=== PATIENT | female | born 1980 | race Caucasian/White ===

== ENCOUNTER → 2016-12-16 | Emergency (ER) | payer MEDICAID ==
[~2016-12-16] VITALS: Ht 162.6 cm; Wt 90.7 kg
[~2016-12-16] MED LIST: ACETAMINOPHEN-1 EAC1 ORAL; ALBUTEROL SULF8.5 GM INH; BENADRYL25 MG ORAL; DAILY VITAMIN1 EAC4 ORAL; DEPAKOTE250 MG PO; DOCUSATE SODIU100 MG ORAL; DONEPEZIL HCL10 M2 ORAL; FAMOTIDINE20 MG ORAL; HYDROCHLOROTHIA25 MG ORAL; KEFLEX500 MG ORAL; KENALOG IN ORABA1 EA APPLIC; MOBIC15 MG ORAL; Morphine Sulfate 4mg/ml Inj IVP ONE; NAMENDA10 MG ORAL; NORCO 10/3251 EA ORAL; NORCO 5-325 TA1 EACH ORAL; NORCO 5-325 TA1 EACH PO; ONDANSETRON ODT4 MG ORAL; PERCOCET 5-3251 EACH PO; PHENERGAN25 M1 ORAL; PRILOSEC10 M1 ORAL; RANITIDINE HCL150 MG PO; TRAMADOL HCL50 MG ORAL; UNOBMED; ZOFRAN ODT4 MG ORAL; ZOFRAN4 MG ORAL
[2016-12-16 12:54] VITALS: BP 118/80
[2016-12-16 13:51] LABS: APPEARANCE,URINE CLEAR; KETONES,URINE NEGATIVE (NEGATIVE); LEUKOCYTE ESTERASE ,URINE NEGATIVE (NEGATIVE); NITRITE,URINE NEGATIVE (NEGATIVE); PH,URINE 7 (4.5-8.0); PROTEIN,URINE NEGATIVE (NEGATIVE); UROBILINOGEN,URINE NORMAL MG/DL (0.0-1.0)
[2016-12-16 13:52] LABS: BASOPHILS % (AUTO) 0.7 % (0.0-2.0); EOSINOPHILS % (AUTO) 1.9 % (0.0-3.0); LYMPHOCYTES % (AUTO) 14.8 % (20.0-45.0); MEAN CORPUSCULAR HEMOGLOBIN 25.5 PG (27.0-31.0); MEAN CORPUSCULAR HGB CONC 30.9 G/DL (32.0-36.0); MEAN CORPUSCULAR VOLUME 82 FL (80-99); MEAN PLATELET VOLUME 7.8 FL (6.5-10.1); MONOCYTES % (AUTO) 6.8 % (1.0-10.0); NEUTROPHILS % (AUTO) 75.8 % (45.0-75.0); PLATELET COUNT 288 K/UL (150-450); RED BLOOD COUNT 4.25 M/UL (4.20-5.40); RED CELL DISTRIBUTION WIDTH 14.7 % (11.6-14.8); WHITE BLOOD COUNT 5.6 K/UL (4.8-10.8)
[2016-12-16 14:04] LABS: ALANINE AMINOTRANSFERASE 10 U/L (3-33); ALBUMIN/GLOBULIN RATIO 1.1 (1.0-2.7); ANION GAP 14 (5-15); ASPARTATE AMINO TRANSFERASE 16 U/L (5-40); CALCIUM 9.1 mg/dL (8.6-10.2); CARBON DIOXIDE 24 mEQ/L (20-30); CHLORIDE 100 mEQ/L (98-107); CREATININE 0.8 mg/dL (0.5-0.9); GLOMERULAR FILTRATION RATE > 60 mL/min (>60); HEMOLYSIS 4; LIPASE 22 U/L (< 60); POTASSIUM 3.8 mEQ/L (3.4-4.9); SODIUM 138 mEQ/L (135-145)
[2016-12-16 14:59] VITALS: BP 123/76
--- NOTE | 2016-12-16 15:20 | Diagnostic Imaging Report ---
Indications: Abdominal pain for one day, history of cervical carcinoma and hysterectomy Technique: Continuous helical CT imaging of the abdomen and pelvis was performed with automatic exposure control following administration intravenous nonionic iodine contrast, on a Siemens sensation [address] scanner. Axial, coronal, and sagittal images were reconstructed at 5 mm slice thickness. No oral contrast was administered per requesting physician's order, despite no contraindications listed in either submitted clinical data or tech note. CTDI volume(s): 18 mGy Total DLP: 935 mGy-cm Findings: Comparison: 09/13/2016, 05/30/2016, 04/15/2016, 02/02/2016, 07/19/2013 Lack of currently administered oral contrast limits evaluation. Residual contrast from recent prior outside examination is present throughout the colon to the rectum. Entire tract nondilated. Small hiatal hernia, gastric bypass changes, prior cholecystectomy, mild prominence of bile ducts without obvious obstructive etiology, linea alba a diastases in conjunction with intra-abdominal wall incisional scar, absence of uterus and ovaries unchanged. Remainder visualized pelvic anatomy demonstrates no other obvious acute abnormality. Lung bases and adjacent pleural surfaces clear. No focal skeletal abnormality identified. Impression: No evidence of acute abdominopelvic disease, with limitation as described. Subtle but potentially significant abnormalities may be missed. Repeat CT scan with full oral and IV contrast preparation recommended for more complete evaluation, as clinically indicated Stable chronic changes as described
--- NOTE | 2016-12-16 15:51 | Emergency Room Report ---
History of Present Illness General Chief Complaint: Abdominal Pain Source: Medical Record Present Illness Allergies: Coded Allergies: ASPIRIN (Verified Allergy, Severe, bleeding, 07/19/13) SUMATRIPTAN (Verified Allergy, Severe, rash, 07/19/13) SUMATRIPTAN SUCCINATE (Verified Allergy, Severe, rash, 07/19/13) METOCLOPRAMIDE (Verified Allergy, Unknown, 12/16/16) PIPERACILLIN (Verified Allergy, Unknown, 04/15/16) TAZOBACTAM (Verified Allergy, Unknown, 04/15/16) VANCOMYCIN (Verified Allergy, Unknown, 12/16/16) Uncoded Allergies: REGLAN (Allergy, Unknown, 09/12/16) VANCOMYCIN (Allergy, Unknown, 09/12/16) Patient History Last Menstrual Period: Hystectomy Now: No : 7 Para: 7 Nursing Documentation-PMH Past Medical History: No History, Except For Hx Asthma: Yes Hx Cancer: Yes - cervical CA Hx Gastrointestinal Problems: Yes - INTUSIVCEPTIVE Physical Exam Vital Signs Date Time Temp Pulse Resp B/P Pulse Ox O2 Delivery O2 Flow Rate FiO2 12/16/16 12:49 98.8 64 18 118/80 99 Room Air Procedures Laceration/Wound Repair Laceration/Wound Repair : Consent: Verbal Wound Location: abdomen Wound's Depth, Shape: superficial Wound Explored: contaminated Betadine Prep?: No Wound Debrided: minimal Wound Repaired With: Steri-strips Sling Applied?: No Patient Tolerated: Well Complications: None Progress Area with endorses pus drainage from patient/, ?dirty wound Was not sutured close Medical Decision Making Diagnostic Impression: Primary Impression: Abdominal pain Qualified Codes: R10.84 - Generalized abdominal pain Additional Impressions: Opiate dependence Qualified Codes: F11.20 - Opioid dependence, uncomplicated narcotic seeking behavior ER Course Received patient in signout from Dr Paredes to followup CTAP No acute abnormality to explain patient's pain Patient endorsing discharge from wound; we shall elect to close with steri strips open d/t ?dirty wound PO keflex sent to patient's pharmacy Patient and partner made specific request for admission for "pain meds" and also requesting Rx for opioids Patient's partner became aggressive, threatening to me at MD desk Recommended f/up with Dr Diaz who I texted to help secure appointment for patient No other acute issue in ED DC home Last Vital Signs Date Time Temp Pulse Resp B/P Pulse Ox O2 Delivery O2 Flow Rate FiO2 12/16/16 14:59 68 18 123/76 99 Room Air 12/16/16 12:49 98.8 Status: improved Disposition: HOME, SELF-CARE Condition: Improved Scripts Cephalexin* (KEFLEX*) 500 Mg Capsule 500 MG ORAL Q6H for 7 Days, #28 CAP 0 Refills Prov: BRIAN THACKER M.D. 12/16/16 Referrals: [facility],REFERRING (PCP) Additional Instructions: - Take ALL antibiotics as prescribed - Keep steri strips clean/dry on wound - Please follow up with Dr Diaz for followup appointment in his office in 2-3 days BRIAN THACKER M.D. Dec 16, 2016 15:51
--- NOTE | 2016-12-17 14:06 | Emergency Room Report ---
History of Present Illness General Chief Complaint: Abdominal Pain Source: Patient, Medical Record Present Illness HPI 36-year-old female presents to ED complaining of abdominal pain. States pain started one hour ago while at rest. Pain is sharp. 10 out of 10. Localized lower abdomen. Nonradiating. No aggravating or relieving factors. Patient states she's had multiple surgeries to her abdomen in the past including hernia repair with mesh. Denies he nausea or vomiting. Denies fevers or chills. Denies any other associated symptom Allergies: Coded Allergies: ASPIRIN (Verified Allergy, Severe, bleeding, 07/19/13) SUMATRIPTAN (Verified Allergy, Severe, rash, 07/19/13) SUMATRIPTAN SUCCINATE (Verified Allergy, Severe, rash, 07/19/13) METOCLOPRAMIDE (Verified Allergy, Unknown, 12/16/16) PIPERACILLIN (Verified Allergy, Unknown, 04/15/16) TAZOBACTAM (Verified Allergy, Unknown, 04/15/16) VANCOMYCIN (Verified Allergy, Unknown, 12/16/16) Uncoded Allergies: REGLAN (Allergy, Unknown, 09/12/16) VANCOMYCIN (Allergy, Unknown, 09/12/16) Patient History Past Medical History: asthma, other - cervical CA Past Surgical History: other - hernia Pertinent Family History: none Social History: Denies: alcohol use, drug use, smoking Last Menstrual Period: Hystectomy Now: No : 7 Para: 7 Immunizations: UTD Reviewed Nursing Documentation: PMH: Agreed, PSxH: Agreed Nursing Documentation-PMH Past Medical History: No History, Except For Hx Asthma: Yes Hx Cancer: Yes - cervical CA Hx Gastrointestinal Problems: Yes - INTUSIVCEPTIVE Review of Systems All Other Systems: negative except mentioned in HPI Physical Exam Vital Signs Date Time Temp Pulse Resp B/P Pulse Ox O2 Delivery O2 Flow Rate FiO2 12/16/16 12:49 98.8 64 18 118/80 99 Room Air Sp02 EP Interpretation: reviewed, normal General Appearance: no apparent distress, alert, GCS 15, non-toxic, obese Head: normocephalic, atraumatic Eyes: bilateral eye PERRL, bilateral eye normal inspection ENT: hearing grossly normal, normal pharynx, no angioedema, normal voice Neck: full range of motion, supple/symm/no masses Respiratory: chest non-tender, lungs clear, normal breath sounds, speaking full sentences Cardiovascular #1: regular rate, rhythm, no edema Cardiovascular #2: 2+ carotid (R), 2+ carotid (L), 2+ radial (R), 2+ radial (L) , 2+ dorsalis pedis (R), 2+ dorsalis pedis (L) Gastrointestinal: normal bowel sounds, non tender, soft, non-distended, no guarding, no rebound, other - surgical scars healed in lower abdomen. small 1cm opening within surgical scar. no drainage or erythema Rectal: deferred Genitourinary: normal inspection, no CVA tenderness Musculoskeletal: back normal, gait/station normal, normal range of motion, non- tender, calf tenderness Neurologic: alert, oriented x3, responsive, motor strength/tone normal, sensory intact, speech normal Psychiatric: judgement/insight normal, memory normal, mood/affect normal, no suicidal/homicidal ideation Reflexes: 3+ bicep (R), 3+ bicep (L), 3+ tricep (R), 3+ tricep (L), 3+ knee (R) , 3+ knee (L) Skin: normal color, no rash, warm/dry, well hydrated Lymphatic: no adenopathy Medical Decision Making Diagnostic Impression: Primary Impression: Abdominal pain Qualified Codes: R10.84 - Generalized abdominal pain Additional Impressions: Opiate dependence Qualified Codes: F11.20 - Opioid dependence, uncomplicated narcotic seeking behavior ER Course Hospital Course 36-year-old f presents to ED with abdominal pain. History of multiple surgeries. Noted to have small drainage from surgical site Differential diagnosis includes-surgical site infection, abscess, problem with hernia mesh, SBO Clinical course Patient placed on stretcher. After initial history and physical I ordered labs , IV fluids, pain medications and CT scan Labs - no leukocytosis, electrolytes ok, LFTs normal, UA unremarkable CT scan pending Case endorsed to Dr. Thacker pending CT results I did convey my concern to oncoming physician that patients has been coming to the desk repeatedly requesting additional pain medications for the patient. I am concerned about opioid dependence. On observation the patient appears to be in no distress. Abdominal exam show no rigidity or guarding. Labs Test 12/16/16 13:15 12/16/16 13:40 Urine Color Pale yellow Urine Appearance Clear Urine pH 7 (4.5-8.0) Urine Specific [place] 1.005 (1.005-1.035) Urine Protein Negative (NEGATIVE) Urine Glucose (UA) Negative (NEGATIVE) Urine Ketones Negative (NEGATIVE) Urine Occult Blood Negative (NEGATIVE) Urine Nitrite Negative (NEGATIVE) Urine Bilirubin Negative (NEGATIVE) Urine Urobilinogen Normal MG/DL (0.0-1.0) Urine Leukocyte Esterase Negative (NEGATIVE) Urine HCG, Qualitative Negative White Blood Count 5.6 K/UL (4.8-10.8) Red Blood Count 4.25 M/UL (4.20-5.40) Hemoglobin 10.8 G/DL (12.0-16.0) Hematocrit 35.0 % (37.0-47.0) Mean Corpuscular Volume 82 FL (80-99) Mean Corpuscular Hemoglobin 25.5 PG (27.0-31.0) Mean Corpuscular Hemoglobin Concent 30.9 G/DL (32.0-36.0) Red Cell Distribution Width 14.7 % (11.6-14.8) Platelet Count 288 K/UL (150-450) Mean Platelet Volume 7.8 FL (6.5-10.1) Neutrophils (%) (Auto) 75.8 % (45.0-75.0) Lymphocytes (%) (Auto) 14.8 % (20.0-45.0) Monocytes (%) (Auto) 6.8 % (1.0-10.0) Eosinophils (%) (Auto) 1.9 % (0.0-3.0) Basophils (%) (Auto) 0.7 % (0.0-2.0) Sodium Level 138 mEQ/L (135-145) Potassium Level 3.8 mEQ/L (3.4-4.9) Chloride Level 100 mEQ/L (98-107) Carbon Dioxide Level 24 mEQ/L (20-30) Anion Gap 14 (5-15) Blood Urea Nitrogen 8 mg/dL (7-23) Creatinine 0.8 mg/dL (0.5-0.9) Estimat Glomerular Filtration Rate > 60 mL/min (>60) Glucose Level 97 mg/dL (74-106) Calcium Level 9.1 mg/dL (8.6-10.2) Total Bilirubin 0.3 mg/dL (0.0-1.2) Aspartate Amino Transf (AST/SGOT) 16 U/L (5-40) Alanine Aminotransferase (ALT/SGPT) 10 U/L (3-33) Alkaline Phosphatase 120 U/L (35-104) Total Protein 8.0 g/dL (6.6-8.7) Albumin 4.2 g/dL (3.5-5.2) Globulin 3.8 g/dL Albumin/Globulin Ratio 1.1 (1.0-2.7) Lipase 22 U/L (< 60) Last Vital Signs Date Time Temp Pulse Resp B/P Pulse Ox O2 Delivery O2 Flow Rate FiO2 12/16/16 15:58 98.7 12/16/16 14:59 68 18 123/76 99 Room Air Signed Out To: Dr Thacker Scripts Cephalexin* (KEFLEX*) 500 Mg Capsule 500 MG ORAL Q6H for 7 Days, #28 CAP 0 Refills Prov: BRIAN THACKER M.D. 12/16/16 Referrals: [facility],REFERRING (PCP) Additional Instructions: - Take ALL antibiotics as prescribed - Keep steri strips clean/dry on wound - Please follow up with Dr Diaz for followup appointment in his office in 2-3 days MINI OLSEN M.D. Dec 17, 2016 14:06
== END | disposition home or self-care (01) ==
LOC: EDUNIT# 12:48 → EDBD 12:54 → EMR 13:30
DX: R10.9 Unspecified abdominal pain (principal); F11.20 Opioid dependence, uncomplicated; J45.909 Unspecified asthma, uncomplicated; Z85.41 Personal history of malignant neoplasm of cervix uteri; Z90.710 Acquired absence of both cervix and uterus
CPT/HCPCS: 36415; 74177; 80053; 81003; 81025; 83690; 85025; 96374; 96375; 99284; J2270; Q9967

== ENCOUNTER 2018-02-15 19:23 | Emergency (ER) | payer MEDICAID ==
[~2018-02-15] VITALS: Ht 162.6 cm; Wt 95.3 kg
[~2018-02-15 19:23] MED LIST changes: -Morphine Sulfate 4mg/ml Inj IVP ONE; +NORCO 10-325 T1 EACH ORAL
[2018-02-15 19:30] VITALS: BP 180/100
[2018-02-15] MEDS ORDERED: levETIRAcetam 500mg/NS100ml 100 ML IVPB ONE (19:45)
[2018-02-15] MEDS ORDERED: Dexamethasone 4mg/ml vial IVP ONE (20:00)
[2018-02-15 20:45] LABS: APPEARANCE,URINE CLEAR; BILIRUBIN, URINE NEGATIVE (NEGATIVE); COLOR,URINE PALE YELLOW; GLUCOSE, URINE (UA) NEGATIVE (NEGATIVE); KETONES,URINE NEGATIVE (NEGATIVE); LEUKOCYTE ESTERASE ,URINE NEGATIVE (NEGATIVE); NITRITE,URINE NEGATIVE (NEGATIVE); PH,URINE 7 (4.5-8.0); PROTEIN,URINE 1+ (NEGATIVE); UROBILINOGEN,URINE NORMAL MG/DL (0.0-1.0)
[2018-02-15 20:54] LABS: ANION GAP 6 mmol/L (5-15); BLOOD UREA NITROGEN 7 mg/dL (7-18); CALCIUM 8.4 MG/DL (8.5-10.1); CARBON DIOXIDE 26 MMOL/L (21-32); CHLORIDE 106 MMOL/L (98-107); CREATININE 0.8 MG/DL (0.55-1.30); POTASSIUM 4.7 MMOL/L (3.5-5.1); SODIUM 138 MMOL/L (136-145)
[2018-02-15 20:59] LABS: ALANINE AMINOTRANSFERASE 15 U/L (12-78); ALBUMIN 3.3 G/DL (3.4-5.0); ALBUMIN/GLOBULIN RATIO 0.8 (1.0-2.7); ALKALINE PHOSPHATASE 116 U/L (46-116); ASPARTATE AMINO TRANSFERASE 31 U/L (15-37); BILIRUBIN,TOTAL 0.3 MG/DL (0.2-1.0)
[2018-02-15 21:30] VITALS: BP 122/72
[2018-02-15 21:43] LABS: HEMATOCRIT 27.2 % (37.0-47.0); HEMOGLOBIN 8.1 G/DL (12.0-16.0); MEAN CORPUSCULAR VOLUME 70 FL (80-99); PLATELET COUNT 328 K/UL (150-450); RED BLOOD COUNT 3.87 M/UL (4.20-5.40); RED CELL DISTRIBUTION WIDTH 14.9 % (11.6-14.8); WHITE BLOOD COUNT 8.5 K/UL (4.8-10.8)
[2018-02-15 21:44] LABS: BASOPHILS % (AUTO) 0.7 % (0.0-2.0); EOSINOPHILS % (AUTO) 2.6 % (0.0-3.0); LYMPHOCYTES % (AUTO) 5.9 % (20.0-45.0); MONOCYTES % (AUTO) 4.5 % (1.0-10.0); NEUTROPHILS % (AUTO) 86.3 % (45.0-75.0)
--- NOTE | 2018-02-15 22:15 | Emergency Room Report ---
History of Present Illness General Chief Complaint: Seizure Source: Patient, EMS Present Illness HPI Patient 37-year-old female presented after possible seizure. The patient stated that she had not had previous seizures in the past. She reported having in her head. She denies any fever. She had reported prior history of cervical cancer. She does not take seizure medications.The seizure was witnessed generalized. Allergies: Coded Allergies: ASPIRIN (Verified Allergy, Severe, bleeding, 07/19/13) SUMATRIPTAN (Verified Allergy, Severe, rash, 07/19/13) SUMATRIPTAN SUCCINATE (Verified Allergy, Severe, rash, 07/19/13) METOCLOPRAMIDE (Verified Allergy, Unknown, 12/16/16) PIPERACILLIN (Verified Allergy, Unknown, 04/15/16) TAZOBACTAM (Verified Allergy, Unknown, 04/15/16) VANCOMYCIN (Verified Allergy, Unknown, 12/16/16) Uncoded Allergies: REGLAN (Allergy, Unknown, 09/12/16) VANCOMYCIN (Allergy, Unknown, 09/12/16) Patient History Past Medical History: see triage record Last Menstrual Period: n/a Now: No - hysterectomy Reviewed Nursing Documentation: PMH: Agreed; PSxH: Agreed Nursing Documentation-PMH Hx Hypertension: Yes Hx Asthma: Yes Hx Cancer: Yes - cervical Hx Gastrointestinal Problems: Yes - INTUSIVCEPTIVE Review of Systems All Other Systems: negative except mentioned in HPI Physical Exam Vital Signs Date Time Temp Pulse Resp B/P (MAP) Pulse Ox O2 Delivery O2 Flow Rate FiO2 02/15/18 19:17 98.5 120 16 180/100 98 Room Air 98.4 Sp02 EP Interpretation: reviewed, normal General Appearance: normal inspection, well appearing, no apparent distress, alert, GCS 15, non-toxic Head: atraumatic ENT: normal ENT inspection, hearing grossly normal, normal voice Neck: normal inspection, full range of motion, supple, no bony tend Respiratory: normal inspection, lungs clear, normal breath sounds, no respiratory distress, no retraction, no wheezing Cardiovascular #1: regular rate, rhythm, no edema Gastrointestinal: normal inspection, normal bowel sounds, non tender, soft, no guarding, no hernia Genitourinary: no CVA tenderness Musculoskeletal: normal inspection, back normal, normal range of motion Neurologic: normal inspection, alert, oriented x3, responsive, barrel waterer III-XII nml as tested, motor strength/tone normal, speech normal Psychiatric: normal inspection, judgement/insight normal, mood/affect normal Skin: normal inspection, normal color, no rash Medical Decision Making Diagnostic Impression: Primary Impression: New onset seizure Additional Impression: Head contusion ER Course Patient presented for seizure. Differential diagnosis included cysticercosis, electrolyte abnormality, mass lesion, or cranial hemorrhage. Because of complexity of patient's case laboratory testing and imaging studies were ordered. I laboratory testing was notable for anemia. CT head read by radiology showed no evidence of acute hemorrhage or CVA. Patient was given IV Keppra. Urine drug screen was positive for opiates.The patient was discussed with Physician from [facility] for Transfer. Patient insurance company was unable to arrange a timely transfer.Patient's Currently Stable for Transfer. Dr. Hagan was contacted for inpatient management due to complexity of medical condition. Labs Test 02/15/18 20:10 02/15/18 21:35 Urine Color Pale yellow Urine Appearance Clear Urine pH 7 (4.5-8.0) Urine Specific [place] 1.010 (1.005-1.035) Urine Protein 1+ (NEGATIVE) Urine Glucose (UA) Negative (NEGATIVE) Urine Ketones Negative (NEGATIVE) Urine Occult Blood Negative (NEGATIVE) Urine Nitrite Negative (NEGATIVE) Urine Bilirubin Negative (NEGATIVE) Urine Urobilinogen Normal MG/DL (0.0-1.0) Urine Leukocyte Esterase Negative (NEGATIVE) Urine RBC 0-2 /HPF (0 - 2) Urine WBC 0-2 /HPF (0 - 2) Urine Squamous Epithelial Cells Few /LPF (NONE/OCC) Urine Bacteria Few /HPF (NONE) Urine HCG, Qualitative Negative (NEGATIVE) Sodium Level 138 MMOL/L (136-145) Potassium Level 4.7 MMOL/L (3.5-5.1) Chloride Level 106 MMOL/L (98-107) Carbon Dioxide Level 26 MMOL/L (21-32) Anion Gap 6 mmol/L (5-15) Blood Urea Nitrogen 7 mg/dL (7-18) Creatinine 0.8 MG/DL (0.55-1.30) Estimat Glomerular Filtration Rate > 60 mL/min (>60) Glucose Level 90 MG/DL (74-106) Calcium Level 8.4 MG/DL (8.5-10.1) Total Bilirubin 0.3 MG/DL (0.2-1.0) Aspartate Amino Transf (AST/SGOT) 31 U/L (15-37) Alanine Aminotransferase (ALT/SGPT) 15 U/L (12-78) Alkaline Phosphatase 116 U/L (46-116) Total Protein 7.4 G/DL (6.4-8.2) Albumin 3.3 G/DL (3.4-5.0) Globulin 4.1 g/dL Albumin/Globulin Ratio 0.8 (1.0-2.7) Urine Opiates Screen Positive (NEGATIVE) Urine Barbiturates Screen Negative (NEGATIVE) Phencyclidine (PCP) Screen Negative (NEGATIVE) Urine Amphetamines Screen Negative (NEGATIVE) Urine Benzodiazepines Screen Negative (NEGATIVE) Urine Cocaine Screen Negative (NEGATIVE) Urine Marijuana (THC) Screen Negative (NEGATIVE) White Blood Count 8.5 K/UL (4.8-10.8) Red Blood Count 3.87 M/UL (4.20-5.40) Hemoglobin 8.1 G/DL (12.0-16.0) Hematocrit 27.2 % (37.0-47.0) Mean Corpuscular Volume 70 FL (80-99) Mean Corpuscular Hemoglobin 20.9 PG (27.0-31.0) Mean Corpuscular Hemoglobin Concent 29.7 G/DL (32.0-36.0) Red Cell Distribution Width 14.9 % (11.6-14.8) Platelet Count 328 K/UL (150-450) Mean Platelet Volume 7.1 FL (6.5-10.1) Neutrophils (%) (Auto) 86.3 % (45.0-75.0) Lymphocytes (%) (Auto) 5.9 % (20.0-45.0) Monocytes (%) (Auto) 4.5 % (1.0-10.0) Eosinophils (%) (Auto) 2.6 % (0.0-3.0) Basophils (%) (Auto) 0.7 % (0.0-2.0) EKG Diagnostic Results Rate: normal Rhythm: NSR ST Segments: no acute changes Rhythm Strip Diag. Results EP Interpretation: yes Rhythm: NSR, no PVC's, no ectopy Last Vital Signs Date Time Temp Pulse Resp B/P (MAP) Pulse Ox O2 Delivery O2 Flow Rate FiO2 02/15/18 21:15 98.5 02/15/18 19:17 120 16 180/100 98 Room Air Status: unchanged Disposition: ADMITTED INPATIENT Condition: Serious Buck Leiva Feb 15, 2018 22:15
[2018-02-15 23:30] VITALS: BP 117/65
[2018-02-15] MEDS ORDERED: Morphine Sulfate 2mg/ml Inj IVP PRN (23:30)
[2018-02-15] MEDS ORDERED: Zolpidem 5mg tab ORAL PRN (23:30)
[2018-02-15] MEDS ORDERED: HYDROcodone/Acetamin 10/325 tab ORAL PRN (23:30)
[2018-02-15] MEDS ORDERED: Albuterol 90mcg Inhaler 8gm INH SCH (23:30)
[2018-02-15] MEDS ORDERED: Mylanta II UD 30ml ORAL PRN (23:30)
[2018-02-15] MEDS ORDERED: Miralax 17gm pkt ORAL PRN (23:30)
[2018-02-15] MEDS ORDERED: LORazepam Inj 2mg/ml 1ml IV PRN (23:30)
[2018-02-16 01:10] VITALS: BP 133/80
[2018-02-16 01:20] VITALS: BP 133/80
[2018-02-16] MEDS ORDERED: Heparin 5000 units/ml inj SUBQ SCH (09:00)
--- NOTE | 2018-02-16 10:44 | Diagnostic Imaging Report ---
Indication: Altered mental status Technique: Continuous helical CT scanning of the head was performed without intravenous contrast material. Axial and coronal 5 mm sections were generated. Radiation dose was minimized using automated exposure control Dose: Total Dose Length Product - DLP 1333.[address] Dose Index - CTDIvol(s) 70.38 mGy. Comparison: 08/25/2013 Findings: The ventricular system is normal in size and configuration. There is no shift of midline structures. No abnormal extra-axial fluid collections are noted. There is no evidence of intracerebral bleeding. No other abnormal high or low density areas are noted within the brain. There is midline frontal scalp mild soft tissue swelling. Normal rangel-white differentiation. Underpneumatized mastoids bilaterally. Visualized orbits and sinuses are unremarkable. Probable empty sella noted Impression: Evidence of frontal scalp soft tissue injury Negative for acute intracranial bleed or mass effect Empty sella incidentally noted This agrees with the preliminary interpretation provided overnight by [facility] teleradiology service. The CT scanner at [facility] is accredited by the [place] [employer] and the scans are performed using protocols designed to limit radiation exposure to as low as reasonably achievable to attain images of sufficient resolution adequate for diagnostic evaluation.
== END 2018-02-16 01:20 | disposition other institution (70) ==
LOC: EDBD 19:23 → EMR 19:35 → EDBEDREQ 22:27 → EMR 02-16 01:20
DX: R56.9 Unspecified convulsions (principal); S00.93XA Contusion of unspecified part of head, initial encounter; W19.XXXA Unspecified fall, initial encounter; Y92.9 Unspecified place or not applicable; I10 Essential (primary) hypertension; J45.909 Unspecified asthma, uncomplicated; Z85.41 Personal history of malignant neoplasm of cervix uteri; Z88.6 Allergy status to analgesic agent; Z88.1 Allergy status to other antibiotic agents; Z88.8 Allergy status to other drugs, medicaments and biological substances
CPT/HCPCS: 36415; 70450; 80053; 80307; 81001; 81025; 85025; 99285; J0780; J1100; J1953

== ENCOUNTER 2018-07-09 04:46 | Emergency (ER) | payer MEDICAID ==
[~2018-07-09] VITALS: Ht 162.6 cm; Wt 90.7 kg
[2018-07-09 04:57] VITALS: BP 165/78
--- NOTE | 2018-07-09 04:58 | Emergency Room Report ---
History of Present Illness General Chief Complaint: Abdominal Pain Source: Patient Present Illness HPI Patient presents with complaints of discharge from her open abdominal wound Patient has complicated history including fistula With recent seroma drainage Patient reports that she was discharged from the hospital on Has had continued discharge from the open wound she felt that there was some yellowish greenish type discharge and with the increased pain she presents to the ER Patient had also increased nausea and did vomit Denies any chest pain or shortness of breath denies any back or flank pain Patient reports having several transfusions at [facility] Allergies: Coded Allergies: ASPIRIN (Verified Allergy, Severe, bleeding, 07/19/13) SUMATRIPTAN (Verified Allergy, Severe, rash, 07/19/13) SUMATRIPTAN SUCCINATE (Verified Allergy, Severe, rash, 07/19/13) METOCLOPRAMIDE (Verified Allergy, Unknown, 12/16/16) PIPERACILLIN (Verified Allergy, Unknown, 04/15/16) TAZOBACTAM (Verified Allergy, Unknown, 04/15/16) VANCOMYCIN (Verified Allergy, Unknown, 12/16/16) Uncoded Allergies: REGLAN (Allergy, Unknown, 09/12/16) VANCOMYCIN (Allergy, Unknown, 09/12/16) Patient History Past Medical History: see triage record Pertinent Family History: none Reviewed Nursing Documentation: PMH: Agreed; PSxH: Agreed Nursing Documentation-PMH Hx Hypertension: Yes Hx Asthma: Yes Hx Cancer: Yes - cervical Hx Gastrointestinal Problems: Yes - INTUSIVCEPTIVE Review of Systems All Other Systems: negative except mentioned in HPI Physical Exam Vital Signs Date Time Temp Pulse Resp B/P (MAP) Pulse Ox O2 Delivery O2 Flow Rate FiO2 07/09/18 04:47 98.1 91 16 171/95 98 Room Air 98.1 Sp02 EP Interpretation: reviewed, normal General Appearance: no apparent distress Head: normocephalic, atraumatic Eyes: bilateral eye PERRL, bilateral eye EOMI ENT: hearing grossly normal, normal pharynx, TMs + canals normal, uvula midline Neck: full range of motion, supple, no meningismus, no bony tend Respiratory: lungs clear, normal breath sounds, no rhonchi, no respiratory distress, no retraction, no accessory muscle use Cardiovascular #1: normal peripheral pulses, regular rate, rhythm, no edema, no gallop, no JVD, no murmur Gastrointestinal: normal bowel sounds, soft, no mass, no organomegaly, non- distended, no guarding, no hernia, no pulsatile mass, no rebound, other - Opened left mid abdominal wound, mild surrounding erythema, serosanguineous discharge on the dressing no obvious pus no fluctuance Genitourinary: no CVA tenderness Musculoskeletal: normal inspection Neurologic: oriented x3, responsive, pipe bowl paint trimmer III-XII nml as tested, motor strength/ tone normal, sensory intact Psychiatric: mood/affect normal Skin: other - As above Lymphatic: normal inspection, no adenopathy Medical Decision Making Diagnostic Impression: Primary Impression: Abdominal pain Additional Impression: Dressing change ER Course Patient has significant past medical history Also significantly Recent hospitalization with intervention At this time patient's abdominal exam is benign There are no signs of any fluctuance There is an open wound with drainage Patient is afebrile hemodynamically stable I did not feel patient met criteria for acute intervention Pain control was provided with antiemetics as well and patient is stable for close follow-up at [facility] in the next one day Last Vital Signs Date Time Temp Pulse Resp B/P (MAP) Pulse Ox O2 Delivery O2 Flow Rate FiO2 07/09/18 04:47 98.1 91 16 171/95 98 Room Air 98.1 Status: improved Disposition: HOME, SELF-CARE Condition: Improved Additional Instructions: Follow-up [facility] next one day return with any worsening symptoms Fouzia Blanco DO Jul 09, 2018 04:57
[2018-07-09] MEDS ORDERED: HYDROmorphone 1mg/ml Carpuject IM ONE (05:00)
[2018-07-09] MEDS ORDERED: Bacitracin Oint UD TOPIC ONE (05:30)
[2018-07-09 05:43] VITALS: BP 157/73
[2018-07-09 05:44] VITALS: BP 165/78
== END 2018-07-09 05:50 | disposition home or self-care (01) ==
LOC: EDBD 04:46 → EMR 05:10
DX: R10.9 Unspecified abdominal pain (principal); I10 Essential (primary) hypertension; J45.909 Unspecified asthma, uncomplicated; Z85.41 Personal history of malignant neoplasm of cervix uteri
CPT/HCPCS: 96372; 99283; J1170

== ENCOUNTER 2019-07-16 21:27 | Emergency (ER) | payer MEDICAID, OTHER ==
[~2019-07-16] VITALS: Ht 162.6 cm; Wt 113.4 kg
[2019-07-16 21:27] VITALS: BP 150/87
[~2019-07-16 21:27] MED LIST changes: +KEPPRA500 MG ORAL
--- NOTE | 2019-07-16 21:27 | NUR ---
ED Nurse Note: DOMINICK 60 [address]. Per EMS pt LOC, hit LT side of head and bleeding. SZ shortly after, witnessed by isaías, stated SZ lasted 45 sec.
[2019-07-16] MEDS ORDERED: levETIRAcetam 500mg/NS100ml 100 ML IVPB ONE (21:30)
[2019-07-16] MEDS ORDERED: HYDROmorphone 1mg/ml Carpuject IVP ONE ×3 (21:30→22:45)
--- NOTE | 2019-07-16 21:30 | NUR ---
ED Nurse Note: IV ACCESS ESTABLISHED. BLOOD AND URINE COLLECTED; SENT DOWN TO LAB.
--- NOTE | 2019-07-16 21:32 | Emergency Room Report ---
History of Present Illness General Chief Complaint: Seizure Source: Patient Present Illness HPI This is a 39-year-old female with a history of seizure. She take Keppra 750 mg twice a day. Last seizure activity was 3 months ago. She was waiting for an [employer] letter when she had a seizure activity. Lasted about 40 seconds. Witnessed. She had her head on the pavement. Sustained a laceration and bleeding to the left parietal area. She also has a small amount of tongue abrasion. No incontinence of bowel or urine. She is not postictal anymore. Denies any other complaint. Claimed that she takes her medication regularly. No other injury. Tetanus is up-to-date. Allergies: Coded Allergies: ASPIRIN (Verified Allergy, Severe, bleeding, 07/19/13) SUMATRIPTAN (Verified Allergy, Severe, rash, 07/19/13) SUMATRIPTAN SUCCINATE (Verified Allergy, Severe, rash, 07/19/13) METOCLOPRAMIDE (Verified Allergy, Unknown, 12/16/16) PIPERACILLIN (Verified Allergy, Unknown, 04/15/16) TAZOBACTAM (Verified Allergy, Unknown, 04/15/16) TRAMADOL (Unverified Allergy, Unknown, 07/16/19) VANCOMYCIN (Verified Allergy, Unknown, 12/16/16) Uncoded Allergies: NSAID (Allergy, Unknown, 07/16/19) REGLAN (Allergy, Unknown, 09/12/16) VANCOMYCIN (Allergy, Unknown, 09/12/16) Patient History Past Medical History: see triage record, old chart reviewed, seizures Past Surgical History: hysterectomy, other Pertinent Family History: none Social History: Denies: smoking Last Menstrual Period: na Now: No Immunizations: UTD Reviewed Nursing Documentation: PMH: Agreed; PSxH: Agreed Nursing Documentation-PMH Hx Hypertension: Yes Hx Asthma: Yes Hx Cancer: Yes - cervical Hx Gastrointestinal Problems: Yes - INTUSIVCEPTIVE Hx Seizures: Yes Review of Systems Eye: Denies: eye pain, blurred vision ENT: Denies: ear pain, nose congestion, throat swelling Respiratory: Denies: cough, shortness of breath Cardiovascular: Denies: chest pain, palpitations Gastrointestinal: Denies: abdominal pain, diarrhea, nausea, vomiting Musculoskeletal: Denies: back pain, joint pain Skin: Denies: rash Neurological: Reports: headache, dizziness; Denies: numbness Endocrine: Denies: increased thirst, increased urine Hematologic/Lymphatic: Denies: easy bruising All Other Systems: negative except mentioned in HPI Physical Exam Vital Signs Date Time Temp Pulse Resp B/P (MAP) Pulse Ox O2 Delivery O2 Flow Rate FiO2 07/16/19 21:21 98.1 119 16 150/87 (108) 98 Room Air Vitals with tachycardia Sp02 EP Interpretation: reviewed, normal General Appearance: well appearing, no apparent distress, alert Head: normocephalic, other - 4 cm laceration to the left parietal area. Small hematoma. Eyes: bilateral eye PERRL, bilateral eye EOMI ENT: hearing grossly normal, normal pharynx Neck: full range of motion, supple, no meningismus Respiratory: chest non-tender, lungs clear, normal breath sounds Cardiovascular #1: regular rate, rhythm, no murmur Gastrointestinal: normal bowel sounds, non tender, no mass, no organomegaly, no bruit, non-distended Musculoskeletal: back normal, gait/station normal, normal range of motion Psychiatric: mood/affect normal Procedures Critical Care Time Critical Care Time Critical care is mandated in this patient who presented with head injury with a subarachnoid hemorrhage. Patient require my urgent intervention to attenuate the risks of neurological collapse which may lead to cardiovascular collapse and . Critical care time is 35 minutes excluding any reportable procedure. Critical care time included evaluation, multiple reevaluation, looking at old charts, interpreting laboratory and diagnostic data, discussing case with patient and family and consultants, and charting. Laceration/Wound Repair Laceration/Wound Repair : Consent: Verbal Wound Location: head Wound's Depth, Shape: irregular, stellate, contused tissue Wound Length (cm): 4 Wound Explored: clean Irrigated w/ Saline (ccs): 1000 Anesthesia: 1% Lidocaine Volume Anesthetic (ccs): 10 Wound Debrided: minimal Wound Repaired With: sutures Suture Size/Type: 3:0, proline Number of Sutures: 5 Patient Tolerated: Well Complications: None Medical Decision Making Diagnostic Impression: Primary Impression: Subarachnoid hemorrhage Additional Impressions: Scalp laceration Qualified Codes: S01.01XA - Laceration without foreign body of scalp, initial encounter Head injury, acute Qualified Codes: S09.90XA - Unspecified injury of head, initial encounter Epileptic seizure, generalized Opiate dependence Qualified Codes: F11.20 - Opioid dependence, uncomplicated anemia ER Course Patient presents with a head injury from her seizure. She has a small subarachnoid bleed. She is neurologically intact. Laceration suture. Because of the subarachnoid bleed, will transfer to [facility] for higher level care. I discussed the case with Dr. Ferris, trauma surgeon who accepted the patient for transfer. Rhythm Strip Diag. Results EP Interpretation: yes Rate: 100 Rhythm: NSR, no PVC's, no ectopy CT/MRI/US Diagnostic Results CT/MRI/US Diagnostic Results : Imaging Test Ordered: CT head Impression Read by radiologist. Small right subarachnoid hemorrhage. Last Vital Signs Date Time Temp Pulse Resp B/P (MAP) Pulse Ox O2 Delivery O2 Flow Rate FiO2 07/16/19 21:21 98.1 119 16 150/87 (108) 98 Room Air Status: improved Disposition: XFER [facility] Condition: Serious Ti Alanis MD Jul 16, 2019 21:32
[2019-07-16] MEDS ORDERED: Lidocaine 1% MPF 10mg/ml 5ml ONE (21:39)
--- NOTE | 2019-07-16 21:44 | NUR ---
ED Nurse Note: PT DOWN TO CT
[2019-07-16] MEDS ORDERED: Lidocaine 1% Plain 30 ml INJ ONE (21:45)
--- NOTE | 2019-07-16 22:04 | Diagnostic Imaging Report ---
Indications: Head trauma, seizure, left parietal laceration Technique: Spiral acquisitions obtained through the brain. Angled axial and coronal 5 x 5 mm slices were reconstructed. Total dose length product 1390.16 mGycm. CTDI vol(s) 70.38 mGy. Dose reduction achieved using automated exposure control Comparison: 02/15/2018 Findings: There is a large left high parietal scalp hematoma demonstrated. There is associated soft tissue irregularity consistent with stated clinical history of laceration. There is subtle high attenuation possibly within a high right posterior frontal sulcus which is not evident previously, best appreciated on images 27 through 29 of series 3 and image 24 series 5. No other evidence of acute intercranial hemorrhage. No edema. No mass effect nor midline shift. Normal rangel-white differentiation. Normal size ventricles and extra axial CSF spaces. Intact calvarium. Visualized orbits and sinuses are unremarkable. The mastoids are underpneumatized. Impression: Questionable small subtle focus of subarachnoid hemorrhage in the right convexity near the vertex, most likely posttraumatic given stated clinical history. Consider follow-up with CT or MRI as clinically indicated No mass effect or midline shift demonstrated Evidence of left high parietal scalp soft tissue injury This agrees with the preliminary interpretation provided overnight by [facility] teleradiology service. The CT scanner at [facility] is accredited by the [employer] and the scans are performed using protocols designed to limit radiation exposure to as low as reasonably achievable to attain images of sufficient resolution adequate for diagnostic evaluation.
--- NOTE | 2019-07-16 22:11 | NUR ---
ED Nurse Note: ERMD AT BEDSIDE FOR LACERATION REPAIR.
[2019-07-16 22:15] LABS: ANION GAP 9 mmol/L (5-15); BLOOD UREA NITROGEN 11 mg/dL (7-18); CALCIUM 8.8 MG/DL (8.5-10.1); CARBON DIOXIDE 23 MMOL/L (21-32); CHLORIDE 107 MMOL/L (98-107); CREATININE 0.7 MG/DL (0.55-1.30); POTASSIUM 3.4 MMOL/L (3.5-5.1); SODIUM 139 MMOL/L (136-145)
--- NOTE | 2019-07-16 22:15 | NUR ---
ED Nurse Note: RECEIVED ORDER FOR DILAUDID 1 MG STAT FROM ERMD. OVERODE PYXIS AND ADMINISTERED TO PT.
[2019-07-16] MEDS ORDERED: HYDROmorphone 1mg/ml Carpuject ONE (22:17)
[2019-07-16 22:22] LABS: BASOPHILS % (AUTO) 1.5 % (0.0-2.0); HEMATOCRIT 32.8 % (37.0-47.0); LYMPHOCYTES % (AUTO) 36.2 % (20.0-45.0); MEAN CORPUSCULAR VOLUME 85 FL (80-99); MONOCYTES % (AUTO) 6.4 % (1.0-10.0); NEUTROPHILS % (AUTO) 51.9 % (45.0-75.0); PLATELET COUNT 195 K/UL (150-450); RED BLOOD COUNT 3.88 M/UL (4.20-5.40); RED CELL DISTRIBUTION WIDTH 12.1 % (11.6-14.8); WHITE BLOOD COUNT 4.9 K/UL (4.8-10.8)
[2019-07-16 22:27] LABS: APPEARANCE,URINE CLEAR; BILIRUBIN, URINE NEGATIVE (NEGATIVE); COLOR,URINE PALE YELLOW; GLUCOSE, URINE (UA) NEGATIVE (NEGATIVE); KETONES,URINE NEGATIVE (NEGATIVE); LEUKOCYTE ESTERASE ,URINE NEGATIVE (NEGATIVE); NITRITE,URINE NEGATIVE (NEGATIVE); PH,URINE 5 (4.5-8.0); PROTEIN,URINE 3+ (NEGATIVE); UROBILINOGEN,URINE NORMAL MG/DL (0.0-1.0)
--- NOTE | 2019-07-16 23:11 | NUR ---
Cesar Millan at [facility]: Accepted to Dr. Ferris (Trauma) RM: [id number] REPORT: [phone] HALF AN HOUR BEFORE PICKAGUILARP
[2019-07-16 23:16] LABS: INR 0.9 (0.9-1.1)
--- NOTE | 2019-07-16 23:30 | NUR ---
ED Nurse Note: REPORT GIVEN TO CB FIERRO OR JOAN. PT TO BE ADMITTED TO [id number] UNDER THE CARE OF MD STACEY.
[2019-07-16 23:45] VITALS: BP 135/73
[2019-07-17] MEDS ORDERED: HYDROcodone/Acetamin 5/325 tab ORAL ONE
[2019-07-17] MEDS ORDERED: Morphine Sulfate 10mg/ml Inj IVP ONE (01:00)
--- NOTE | 2019-07-17 01:45 | NUR ---
ED Nurse Note: REPORT GIVEN TO [facility]. PATIENT LEFT WITH MS VIA GURNEY. IV LINE PRESENT AND PATENT. BELONGINGS TAKEN WITH PT. FAMILIY AT BEDSIDE.
[2019-07-17 01:51] VITALS: BP 122/81
== END 2019-07-17 01:45 | disposition short-term general hospital (02) ==
LOC: EDBD 21:27 → EMR 21:50
DX: S06.6X0A Traumatic subarachnoid hemorrhage without loss of consciousness, initial encounter (principal); S01.01XA Laceration without foreign body of scalp, initial encounter; F11.20 Opioid dependence, uncomplicated; G40.409 Other generalized epilepsy and epileptic syndromes, not intractable, without status epilepticus; D64.9 Anemia, unspecified; Z88.6 Allergy status to analgesic agent; Z88.8 Allergy status to other drugs, medicaments and biological substances; Z88.1 Allergy status to other antibiotic agents; W22.09XA Striking against other stationary object, initial encounter; Y92.410 Unspecified street and highway as the place of occurrence of the external cause
CPT/HCPCS: 12002; 36415; 70450; 80048; 81001; 85025; 85610; 85730; 96374; 96375; 96376; 99291; J1170; J1953; J2001; J2270; J2405; Z7502